=== PATIENT | female | born 1975 | race Two or more races ===

== ENCOUNTER 2017-09-02 21:19 | Emergency (ER) | payer BC, OTHER ==
[~2017-09-02] VITALS: Ht 149.9 cm; Wt 68.0 kg
[2017-09-02 21:29] VITALS: BP 141/43
[2017-09-03] MEDS ORDERED: diphenhdrAMINE HCL 50 MG/1 ML VL IM ONE (02:00)
[2017-09-03] MEDS ORDERED: methylPREDNISolone SOD SUCC 125 MG/2 ML VL IM ONE (02:00)
== END 2017-09-03 04:05 | disposition home or self-care (01) ==
LOC: ER 21:19
DX: T78.40XA Allergy, unspecified, initial encounter (principal); Z87.442 Personal history of urinary calculi; Z90.49 Acquired absence of other specified parts of digestive tract
CPT/HCPCS: 96372; 99284; J1200; J2930

== ENCOUNTER 2018-06-14 12:34 | Emergency (ER) | payer BC ==
[~2018-06-14] VITALS: Ht 147.3 cm; Wt 69.4 kg
[2018-06-14] MEDS ORDERED: SODIUM CHLORIDE 0.9% 1,000 ML IVB ONE (13:19)
[2018-06-14 13:23] LABS: Basophils # (auto) 0 uL; Basophils % (auto) 0.2 % (0.0-2.0); Eosinophils # (auto) 0 uL; Eosinophils % (auto) 0.2 % (0.0-7.0); Hematocrit 47.6 % (36.0-46.0); Hemoglobin 16.4 g/dL (12.2-16.2); Lymphocytes # (auto) 1.3 uL; Lymphocytes % (auto) 13.3 % (10.0-50.0); Mean Corpuscular Hgb Conc. 34.4 g/dL (32.0-36.0); Mean Corpuscular Volume 90.3 fL (80.0-100.0); Monocytes # (auto) 0.4 uL; Neutrophils # (auto) 8.3 uL; Neutrophils % (auto) 82.3 % (37.0-80.0); Nucleated Red Blood Cells % 0.1 %; Platelet Count (auto) 195 10^3/uL (140-450); Red Blood Cells 5.27 10^6/uL (4.0-5.20)
[2018-06-14] MEDS ORDERED: HYDROmorphone HCL 2 MG/ML VL IV ONE (13:30)
[2018-06-14] MEDS ORDERED: METOCLOPRAMIDE HCL 5MG/ml INJ 2ml VIAL IV ONE ×2 (13:30→16:15)
[2018-06-14] MEDS ORDERED: KETOROLAC TROMETH 30 MG/ML 1ML VIAL IV ONE ×2 (13:30→16:15)
[2018-06-14 13:43] LABS: Albumin 4.4 g/dL (3.4-5.0); BUN/Creatinine Ratio 14.3; Potassium 3.9 mmol/L (3.5-5.1)
[2018-06-14 13:44] LABS: Magnesium 2.2 mg/dL (1.6-2.6)
[2018-06-14 13:46] LABS: Bilirubin, Total 0.9 mg/dL (0.2-1.0); Total Protein 8.6 g/dL (6.4-8.2)
[2018-06-14 15:56] LABS: Urine Bacteria FEW /hpf (None Seen); Urine Blood 1+ /uL (Negative); Urine Hyaline Cast FEW /lpf (0 - 2); Urine Mucus FEW (None Seen); Urine Specific Gravity 1.029 (1.001-1.035); Urine WBC <1 /hpf (0 - 5)
[2018-06-14 16:35] VITALS: BP 95/51
== END 2018-06-14 16:37 | disposition home or self-care (01) ==
LOC: ER 12:34
DX: N21.1 Calculus in urethra (principal); Z90.89 Acquired absence of other organs
CPT/HCPCS: 36415; 51702; 74176; 80053; 81001; 83690; 83735; 84702; 85025; 96361; 96374; 96375; 96376; 99285; J1170; J1885; J2765; J7030

== ENCOUNTER 2018-06-20 20:57 | Inpatient (IN) | payer BC ==
[~2018-06-20] VITALS: Ht 142.2 cm; Wt 70.2 kg
[2018-06-20 22:26] LABS: Urine Bacteria FEW /hpf (None Seen); Urine Blood 1+ /uL (Negative); Urine Mucus FEW (None Seen); Urine WBC 5 /hpf (0 - 5)
[2018-06-20 22:51] LABS: Basophils # (auto) 0 uL; Basophils % (auto) 0.3 % (0.0-2.0); Eosinophils # (auto) 0 uL; Eosinophils % (auto) 0.3 % (0.0-7.0); Hematocrit 46.8 % (36.0-46.0); Hemoglobin 15.5 g/dL (12.2-16.2); Lymphocytes # (auto) 1.6 uL; Lymphocytes % (auto) 13.6 % (10.0-50.0); Mean Corpuscular Hemoglobin 29.9 pg (28.0-32.0); Mean Corpuscular Hgb Conc. 33.2 g/dL (32.0-36.0); Mean Corpuscular Volume 90.2 fL (80.0-100.0); Monocytes # (auto) 0.7 uL; Monocytes % (auto) 5.8 % (0.0-12.0); Neutrophils # (auto) 9.7 uL; Nucleated Red Blood Cells % 0.1 %; Platelet Count (auto) 209 10^3/uL (140-450); Red Blood Cells 5.19 10^6/uL (4.0-5.20); Red Cell Distribution Width 12.5 % (11.8-14.3); White Blood Cell 12.1 10^3/uL (4.4-10.8)
[2018-06-20 22:53] LABS: Albumin 4.6 g/dL (3.4-5.0); BUN/Creatinine Ratio 15.9; Calcium 9.6 mg/dL (8.5-10.1); Potassium 4.2 mmol/L (3.5-5.1)
[2018-06-20 22:55] LABS: Total Protein 8.9 g/dL (6.4-8.2)
[2018-06-20] MEDS ORDERED: fentaNYL CITRATE 100 MCG/2 ML VL IV ONE (23:00)
[2018-06-20] MEDS ORDERED: KETOROLAC TROMETH 30 MG/ML 1ML VIAL IV ONE (23:00)
[2018-06-21] VITALS (8 sets, daily range): BP systolic 94–118; BP diastolic 43–74
[2018-06-21] MEDS ORDERED: ONDANSETRON HCL 4 MG/2 ML VIAL IV ONE (00:45)
[2018-06-21] MEDS ORDERED: CIPROFLOXACIN 400MG/200ML 200 ML IV ONE (00:45)
[2018-06-21] MEDS ORDERED: HYDROcodone-ACET 5/325MG TAB PO PRN (01:15)
[2018-06-21] MEDS ORDERED: TEMAZEPAM 15 MG CAP PO PRN (01:15)
[2018-06-21] MEDS ORDERED: SODIUM CHLORIDE 0.9% 500 ML IV ONE (01:15)
[2018-06-21] MEDS ORDERED: ACETAMINOPHEN 325 MG TAB PO PRN (01:15)
[2018-06-21] MEDS ORDERED: fentaNYL CITRATE 100 MCG/2 ML VL IV ONE (02:00)
[2018-06-21] MEDS ORDERED: TAMSULOSIN HYDROCHLORIDE 0.4 MG CAP PO ONE (02:00)
[2018-06-21] MEDS: SODIUM CHLORIDE 0.9% 1,000 ML IV SCH ×3 (02:31→17:59)
[2018-06-21] MEDS: MORPHINE SULFATE 4 MG/ML SYR/VIAL IV PRN ×3 (02:31→11:52)
[2018-06-21] MEDS: ONDANSETRON HCL 4 MG/2 ML VIAL IV PRN (02:31)
[2018-06-21] MEDS: cefTRIAXone 1GM/50ML D5W 50 ML IV SCH (09:21)
[2018-06-21] MEDS: FAMOTIDINE 20 MG TAB PO SCH ×2 (09:29→22:00)
[2018-06-21] MEDS: TAMSULOSIN HYDROCHLORIDE 0.4 MG CAP PO SCH (17:58)
[2018-06-21] MEDS: KETOROLAC TROMETH 30 MG/ML 1ML VIAL IV PRN (17:59)
[2018-06-21] MEDS ORDERED: MANNITOL FTV 25% 12.5 GM/50 ML 50 ML IV ONE ×2 (20:00→21:23)
[2018-06-21] MEDS ORDERED: HYDROcodone-ACET 10/325MG TAB PO ONE (22:30)
[2018-06-22] MEDS: KETOROLAC TROMETH 30 MG/ML 1ML VIAL IV PRN ×4 (00:40→23:30)
[2018-06-22] MEDS ORDERED: NALBUPHINE HCL 10 MG/1ml INJECTION IV ONE (01:00)
[2018-06-22] MEDS: SODIUM CHLORIDE 0.9% 1,000 ML IV SCH ×3 (01:32→18:29)
[2018-06-22 05:00] VITALS: BP 106/68
[2018-06-22 05:21] LABS: Basophils # (auto) 0 uL; Basophils % (auto) 0.5 % (0.0-2.0); Eosinophils # (auto) 0.1 uL; Eosinophils % (auto) 1.5 % (0.0-7.0); Hematocrit 38.3 % (36.0-46.0); Lymphocytes # (auto) 2.3 uL; Lymphocytes % (auto) 45.7 % (10.0-50.0); Mean Corpuscular Hemoglobin 30.7 pg (28.0-32.0); Mean Corpuscular Volume 90.4 fL (80.0-100.0); Monocytes # (auto) 0.4 uL; Neutrophils # (auto) 2.3 uL; Neutrophils % (auto) 45.3 % (37.0-80.0); Nucleated Red Blood Cells % 0.2 %; Platelet Count (auto) 134 10^3/uL (140-450); Red Blood Cells 4.24 10^6/uL (4.0-5.20); Red Cell Distribution Width 12.6 % (11.8-14.3)
[2018-06-22 05:36] LABS: INR 0.94 (0.9-1.15); Partial Thromboplastin Time 25.8 sec (23.78-33.04); Prothrombin Time 10.1 sec (9.27-12.13)
[2018-06-22 05:46] LABS: Potassium 4.1 mmol/L (3.5-5.1)
[2018-06-22 05:52] LABS: BUN/Creatinine Ratio 22.2; Calcium 7.9 mg/dL (8.5-10.1)
[2018-06-22 08:00] VITALS: BP 124/75
[2018-06-22] MEDS: cefTRIAXone 1GM/50ML D5W 50 ML IV SCH (08:59)
[2018-06-22] MEDS: FAMOTIDINE 20 MG TAB PO SCH ×2 (10:18→22:30)
[2018-06-22 10:49] VITALS: BP 124/75
[2018-06-22 13:32] VITALS: BP 120/69
[2018-06-22 17:31] VITALS: BP 124/67
[2018-06-22] MEDS: TAMSULOSIN HYDROCHLORIDE 0.4 MG CAP PO SCH (18:29)
[2018-06-22] MEDS ORDERED: BISACODYL 5 MG EC TAB PO ONE (18:30)
[2018-06-22] MEDS: MORPHINE SULFATE 4 MG/ML SYR/VIAL IV PRN ×2 (18:38→22:30)
[2018-06-22 21:30] VITALS: BP 111/66
[2018-06-23] MEDS: ONDANSETRON HCL 4 MG/2 ML VIAL IV PRN (01:00)
[2018-06-23] MEDS: SODIUM CHLORIDE 0.9% 1,000 ML IV SCH ×2 (02:32→11:08)
[2018-06-23] MEDS: MORPHINE SULFATE 4 MG/ML SYR/VIAL IV PRN ×3 (02:35→15:12)
[2018-06-23 05:00] VITALS: BP 101/52
[2018-06-23 09:00] VITALS: BP 105/55
[2018-06-23] MEDS: FAMOTIDINE 20 MG TAB PO SCH (09:11)
[2018-06-23] MEDS: cefTRIAXone 1GM/50ML D5W 50 ML IV SCH (09:11)
[2018-06-23] MEDS: KETOROLAC TROMETH 30 MG/ML 1ML VIAL IV PRN (09:26)
[2018-06-23] MEDS ORDERED: BISACODYL 5 MG EC TAB PO ONE (10:30)
[2018-06-23 13:00] VITALS: BP 111/59
[2018-06-23] MEDS ORDERED: MANNITOL FTV 25% 12.5 GM/50 ML 50 ML IV ONE (13:30)
[2018-06-23 17:00] VITALS: BP 98/51
[2018-06-23 17:40] VITALS: BP 98/51
[2018-06-26] MEDS ORDERED: HYDROcodone-ACET 5/325MG TAB PO PRN (17:00)
== END 2018-06-23 18:54 | disposition home or self-care (01) | DRG 690 ==
LOC: ER 21:02 → OVERFLOW 06-21 01:14 → WEST WING 06-21 01:55
PROVIDERS: ADMIT Nurse Practitioner; ATTEND Internal Medicine
DX: N13.6 Pyonephrosis (principal); N17.9 Acute kidney failure, unspecified; E66.9 Obesity, unspecified; K76.0 Fatty (change of) liver, not elsewhere classified; R73.9 Hyperglycemia, unspecified; N04.9 Nephrotic syndrome with unspecified morphologic changes; Z90.49 Acquired absence of other specified parts of digestive tract; Z68.34 Body mass index [BMI] 34.0-34.9, adult; Z83.3 Family history of diabetes mellitus; Z82.49 Family history of ischemic heart disease and other diseases of the circulatory system; Z87.442 Personal history of urinary calculi; Z90.710 Acquired absence of both cervix and uterus
CPT/HCPCS: 36415; 74018; 74176; 80048; 80053; 81001; 81025; 83036; 85025; 85610; 85730; 87081; 96374; 96375; G0378; J0696; J1885; J2405

== ENCOUNTER 2020-05-19 17:21 | Emergency (ER) | payer BC, OTHER ==
[~2020-05-19] VITALS: Ht 144.8 cm; Wt 68.0 kg
[2020-05-19] MEDS ORDERED: KETOROLAC TROMETH 60MG/2ML VIAL IM ONE (19:15)
[2020-05-19 19:47] VITALS: BP 146/74
== END 2020-05-19 20:06 | disposition home or self-care (01) ==
LOC: ER 17:21
DX: G54.0 Brachial plexus disorders (principal); M25.511 Pain in right shoulder; M19.90 Unspecified osteoarthritis, unspecified site; E03.9 Hypothyroidism, unspecified; Z87.442 Personal history of urinary calculi
CPT/HCPCS: 73030; 96372; 99283; J1885